=== PATIENT | female | born 1995 | race Caucasian/White ===

== ENCOUNTER 2022-05-04 14:50 | Inpatient (IN) | payer MEDICAID ==
[~2022-05-04] VITALS: Ht 157.5 cm; Wt 97.5 kg
[2022-05-04] MEDS ORDERED: MISOPROSTOL 100 MCG TABLET (CYTOTEC) PO PRN (16:15)
[2022-05-04 16:29] LABS: BASOPHILS # (AUTO) 0.1 K/uL (0.0-0.2); EOSINOPHILS # (AUTO) 0.4 K/uL (0.0-0.4); MONOCYTES # (AUTO) 0.8 K/uL (0.0-1.0); RED CELL DISTRIBUTION WIDTH 15.3 % (9.0-15.0); WHITE BLOOD COUNT (AUTO) 11.3 K/uL (4.8-10.8)
[2022-05-04 16:34] LABS: BASOPHILS % (AUTO) 0.6 % (0.0-2.0); EOSINOPHILS % (AUTO) 3.2 % (0.0-4.0); HEMATOCRIT 38.1 % (36-48); LYMPHOCYTES # (AUTO) 2.7 K/uL (1.0-5.5); LYMPHOCYTES % (AUTO) 23.6 % (20.5-51.5); MEAN CORPUSCULAR VOLUME 86 fL (79.0-98.0); MONOCYTES % (AUTO) 6.9 % (1.7-9.3); NEUTROPHILS # (AUTO) 7.4 K/uL (1.8-7.7); NEUTROPHILS % (AUTO) 65.7 % (40.0-70.0); PLATELET COUNT (AUTO) 249 K/uL (130-430); RED BLOOD CELL COUNT(AUTO) 4.41 MIL/uL (4.2-6.2)
[2022-05-04 18:01] VITALS: BP_SYST 126
[2022-05-04] MEDS ORDERED: LABETALOL 200 MG/ 40ML VIAL IVP ONE (21:00)
[2022-05-04] MEDS ORDERED: AMPICILLIN SODIUM 2 GM in NS 100 ML IV ONE (23:30)
[2022-05-04] MEDS ORDERED: OXYTOCIN/0.9 % SODIUM CHLORIDE 1,000 ML IV SCH (23:30)
[2022-05-05] MEDS ORDERED: AMPICILLIN SODIUM 2 GM VIAL ONE (02:07)
[2022-05-05] MEDS ORDERED: AMPICILLIN SODIUM 1 GM VIAL ONE (05:52)
[2022-05-05] MEDS: AMPICILLIN SODIUM 1 GM in NS 50 ML IV SCH ×4 (10:49→22:35)
[2022-05-05] MEDS: NALBUPHINE HCL 10 MG/ML AMP IVP PRN (19:06)
[2022-05-06] MEDS: AMPICILLIN SODIUM 1 GM in NS 50 ML IV SCH ×5 (02:30→21:41)
[2022-05-06] MEDS: LR 1,000 ML IV SCH ×3 (05:14→22:09)
[2022-05-06] MEDS: NALBUPHINE HCL 10 MG/ML AMP IVP PRN (06:54)
[2022-05-06] MEDS ORDERED: ACETAMINOPHEN 325 MG TABLET PO PRN (14:30)
[2022-05-06] MEDS ORDERED: fentaNYL CITRATE/PF 100 MCG/2 ML AMP ONE (20:56)
[2022-05-06] MEDS ORDERED: ROPIVACAINE HCL/PF 0.2% 200 ML ONE (20:56)
[2022-05-06] MEDS ORDERED: AMPICILLIN SODIUM 1 GM VIAL ONE (21:27)
[2022-05-06] MEDS ORDERED: LR 500 ML IV ONE (22:45)
[2022-05-06] MEDS ORDERED: FENT2mCg/mL-ROPIVA0.2%/NS EPID 200 ML EP SCH (22:45)
[2022-05-07] MEDS ORDERED: AMPICILLIN SODIUM 1 GM VIAL ONE ×2 (02:05→06:03)
[2022-05-07] MEDS: AMPICILLIN SODIUM 1 GM in NS 50 ML IV SCH ×2 (06:27→11:19)
[2022-05-07] MEDS ORDERED: METHYLERGONOVINE MALEATE 0.2 MG/ML AMP IM ONE (13:10)
[2022-05-07] MEDS ORDERED: METHYLERGONOVINE MALEATE 0.2 MG/ML AMP ONE (13:16)
[2022-05-07] MEDS ORDERED: OXYTOCIN/0.9 % SODIUM CHLORIDE 1,000 ML IV SCH ×2 (14:00→14:45)
[2022-05-07] MEDS ORDERED: RHO(D) IMMUNE GLOBULIN/MALTOSE 1500 UNITS/1.3 ML (WINHRO) IM PRN (14:00)
[2022-05-07] MEDS ORDERED: HYDROCORTISONE 0.5% CREAM 28.4 GM CREAM.GM. TP PRN ×2 (14:00→14:45)
[2022-05-07] MEDS ORDERED: OXYCODONE/ACETAMINOPHEN 5-325 TABLET PO PRN ×3 (14:00→14:45)
[2022-05-07] MEDS ORDERED: DERMOPLAST SPRAY TP PRN ×2 (14:00→14:45)
[2022-05-07] MEDS ORDERED: MEASLES,MUMPS&RUBELLA VACC/PF 12500 UNIT/0.5 ML VIAL SUBQ PRN (14:00)
[2022-05-07] MEDS ORDERED: OXYTOCIN/0.9 % SODIUM CHLORIDE 1,000 ML IV ONE ×2 (14:00→14:45)
[2022-05-07] MEDS ORDERED: LANOLIN 7 GM OINT. TP PRN ×2 (14:00→14:45)
[2022-05-07] MEDS ORDERED: DIPHTH,PERTUSS(ACELL),TET VAC 0.5 ML VIAL (Tdap) I.M. PRN (14:00)
[2022-05-07] MEDS ORDERED: HYDROcodone/ACETAMIN 5-325 MG TAB (NORCO/ VICODIN) PO PRN (14:00)
[2022-05-07] MEDS ORDERED: ANUSOL 1 EA SUPP.RECT (PREPARATION H) RC PRN ×2 (14:00→14:45)
[2022-05-07] MEDS ORDERED: WITCH HAZEL LEAF 1 MED.PAD MED.PAD TP PRN ×2 (14:00→14:45)
[2022-05-07] MEDS ORDERED: IBUPROFEN 600 MG TABLET PO ONE (14:15)
[2022-05-07] MEDS ORDERED: TEMAZEPAM 15 MG CAPSULE PO PRN (14:45)
[2022-05-07] MEDS ORDERED: fentaNYL CITRATE/PF 100 MCG/2 ML AMP ONE (15:09)
[2022-05-07] MEDS ORDERED: ROPIVACAINE HCL/PF 0.2% 200 ML ONE (15:10)
[2022-05-07] MEDS ORDERED: IBUPROFEN 600 MG TABLET PO SCH (18:00)
[2022-05-07] MEDS: IBUPROFEN 600 MG TABLET PO SCH (19:11)
[2022-05-07] MEDS ORDERED: SENNOSIDES/DOCUSATE SODIUM 1 TAB TABLET(SENOKOT-S) PO SCH ×2 (21:00)
[2022-05-08] MEDS: IBUPROFEN 600 MG TABLET PO SCH ×4 (00:25→18:24)
[2022-05-08 07:56] LABS: BASOPHILS % (AUTO) 0.4 % (0.0-2.0); EOSINOPHILS # (AUTO) 0.2 K/uL (0.0-0.4); HEMATOCRIT 27.7 % (36-48); LYMPHOCYTES # (AUTO) 2.6 K/uL (1.0-5.5); LYMPHOCYTES % (AUTO) 23.6 % (20.5-51.5); MEAN CORPUSCULAR VOLUME 87 fL (79.0-98.0); MONOCYTES # (AUTO) 1.1 K/uL (0.0-1.0); MONOCYTES % (AUTO) 9.5 % (1.7-9.3); NEUTROPHILS # (AUTO) 7.2 K/uL (1.8-7.7); NEUTROPHILS % (AUTO) 64.5 % (40.0-70.0); PLATELET COUNT (AUTO) 169 K/uL (130-430); RED BLOOD CELL COUNT(AUTO) 3.19 MIL/uL (4.2-6.2); RED CELL DISTRIBUTION WIDTH 15.2 % (9.0-15.0); WHITE BLOOD COUNT (AUTO) 11.1 K/uL (4.8-10.8)
[2022-05-08] MEDS ORDERED: DOCUSATE SODIUM 100 MG CAPSULE PO SCH ×2 (09:00)
[2022-05-09] MEDS: IBUPROFEN 600 MG TABLET PO SCH ×3 (00:23→12:13)
== END 2022-05-09 15:40 | disposition home or self-care (01) | DRG 560 ==
LOC: SPU 14:50 → OBSVTOIN 14:50 → SPU 05-08
PROVIDERS: ADMIT Obstetrics & Gynecology; ATTEND Obstetrics & Gynecology
PROC: 10E0XZZ Delivery of Products of Conception, External Approach (ICD-10-PCS; principal; 2022-05-07)
PROC: 3E0R3BZ Introduction of Anesthetic Agent into Spinal Canal, Percutaneous Approach (ICD-10-PCS; 2022-05-07)
PROC: 00HU33Z Insertion of Infusion Device into Spinal Canal, Percutaneous Approach (ICD-10-PCS; 2022-05-07)
PROC: 3E0P7VZ Introduction of Hormone into Female Reproductive, Via Natural or Artificial Opening (ICD-10-PCS; 2022-05-07)
DX: O42.92 Full-term premature rupture of membranes, unspecified as to length of time between rupture and onset of labor (principal); Z37.0 Single live birth; D62 Acute posthemorrhagic anemia; O34.43 Maternal care for other abnormalities of cervix, third trimester; O77.0 Labor and delivery complicated by meconium in amniotic fluid; Z3A.38 38 weeks gestation of pregnancy; Z20.822 Contact with and (suspected) exposure to COVID-19
CPT/HCPCS: 36415; 81002; 85025; 86592; 86886; 86900; 86901; 90715; 94760; J0290; J2210; J2300; J2590; J3010; J3490